=== PATIENT | female | born 1960 | race Two or more races ===

== ENCOUNTER 2021-07-13 09:21 | Outpatient (CLI) | payer OTHER | END 2021-07-13 09:28 | disposition home or self-care (01) | LOC: MAMO-SONO 09:21 | PROVIDERS: ATTEND General Practice | DX: N60.11 Diffuse cystic mastopathy of right breast (principal); N60.12 Diffuse cystic mastopathy of left breast; Z12.31 Encounter for screening mammogram for malignant neoplasm of breast; R10.2 Pelvic and perineal pain ==